=== PATIENT | male | born 1930 | race Caucasian/White ===

== ENCOUNTER 2017-05-27 05:53 | Inpatient (IN) | payer OTHER ==
[~2017-05-27] VITALS: Ht 165.1 cm; Wt 86.2 kg
[~2017-05-27 05:53] MED LIST: ALDACTONE25 MG; ALLEGRA60 M1; BUMETANIDE2 MG; CARAFATE1 G; CARVEDILOL6.25 MG; COZAAR50 MG; HUMALOG100 U/M1; INTESTINEX1 CA1 PO; LASIX40 MG; NEURONTIN300 MG; PROTONIX40 MG; SYNTHROID100 MCG; ZOCOR20 MG
[2017-06-13] MEDS ORDERED: XOPENEX0.63 MG/3 IH (14:01)
[2017-06-13] MEDS ORDERED: SPIRONOLACTONE25 MG PO (14:01)
[2017-06-13] MEDS ORDERED: SIMVASTATIN20 MG PO (14:01)
[2017-06-13] MEDS ORDERED: Coreg 3.125MG TABLET PO (14:01)
[2017-06-13] MEDS ORDERED: ISORDIL10 MG PO (14:01)
[2017-06-13] MEDS ORDERED: TOPROL XL50 M1 PO (14:01)
== END 2017-06-13 17:04 | disposition other institution (70) | DRG 291 ==
LOC: ER 05:53 → SEC-K 15:05 → MEDJ 15:05 → MEDI 17:38 → MEDJ 18:12
PROC: 3E0F7GC Introduction of Other Therapeutic Substance into Respiratory Tract, Via Natural or Artificial Opening (ICD-10-PCS; principal; 2017-05-27)
PROC: BW24ZZZ Computerized Tomography (CT Scan) of Chest and Abdomen (ICD-10-PCS; 2017-05-27)
PROC: 4A12X4Z Monitoring of Cardiac Electrical Activity, External Approach (ICD-10-PCS; 2017-05-27)
PROC: B246ZZZ Ultrasonography of Right and Left Heart (ICD-10-PCS; 2017-05-28)
PROC: 30233N1 Transfusion of Nonautologous Red Blood Cells into Peripheral Vein, Percutaneous Approach (ICD-10-PCS; 2017-05-30)
PROC: 06HM33Z Insertion of Infusion Device into Right Femoral Vein, Percutaneous Approach (ICD-10-PCS; 2017-05-31)
PROC: BT43ZZZ Ultrasonography of Bilateral Kidneys (ICD-10-PCS; 2017-06-03)
PROC: 4A033R1 Measurement of Arterial Saturation, Peripheral, Percutaneous Approach (ICD-10-PCS; 2017-06-05)
PROC: 5A09457 Assistance with Respiratory Ventilation, 24-96 Consecutive Hours, Continuous Positive Airway Pressure (ICD-10-PCS; 2017-06-06)
PROC: 06PYX3Z Removal of Infusion Device from Lower Vein, External Approach (ICD-10-PCS; 2017-06-13)
DX: I13.0 Hypertensive heart and chronic kidney disease with heart failure and stage 1 through stage 4 chronic kidney disease, or unspecified chronic kidney disease (principal); J18.9 Pneumonia, unspecified organism; I50.23 Acute on chronic systolic (congestive) heart failure; J96.01 Acute respiratory failure with hypoxia; N17.8 Other acute kidney failure; N18.4 Chronic kidney disease, stage 4 (severe); J45.31 Mild persistent asthma with (acute) exacerbation; L03.116 Cellulitis of left lower limb; L03.115 Cellulitis of right lower limb; B37.0 Candidal stomatitis; J90 Pleural effusion, not elsewhere classified; F05 Delirium due to known physiological condition; E87.0 Hyperosmolality and hypernatremia; R18.8 Other ascites; E11.649 Type 2 diabetes mellitus with hypoglycemia without coma; E11.65 Type 2 diabetes mellitus with hyperglycemia; E78.4 Other hyperlipidemia; E03.8 Other specified hypothyroidism; Z79.4 Long term (current) use of insulin; Z95.1 Presence of aortocoronary bypass graft; K52.89 Other specified noninfective gastroenteritis and colitis; E11.22 Type 2 diabetes mellitus with diabetic chronic kidney disease; I27.29 Other secondary pulmonary hypertension; I34.0 Nonrheumatic mitral (valve) insufficiency; I48.0 Paroxysmal atrial fibrillation; Z78.1 Physical restraint status; D69.59 Other secondary thrombocytopenia; Z66 Do not resuscitate; B95.62 Methicillin resistant Staphylococcus aureus infection as the cause of diseases classified elsewhere; D63.1 Anemia in chronic kidney disease